=== PATIENT | male | born 2000 | race Caucasian/White ===

== ENCOUNTER 2019-11-04 19:13 | Emergency (ER) | payer BC, OTHER ==
[~2019-11-04] VITALS: Ht 177.8 cm; Wt 113.4 kg
== END 2019-11-04 20:37 | disposition home or self-care (01) ==
LOC: ED 19:13
DX: S61.011A Laceration without foreign body of right thumb without damage to nail, initial encounter (principal); W26.8XXA Contact with other sharp object(s), not elsewhere classified, initial encounter; Y93.89 Activity, other specified; Y92.89 Other specified places as the place of occurrence of the external cause; Y99.8 Other external cause status

== ENCOUNTER 2021-08-10 17:55 | Emergency (ER) | payer OTHER, BC ==
[~2021-08-10] VITALS: Ht 180.3 cm; Wt 122.5 kg
[2021-08-10] MEDS ORDERED: CYCLOBENZAPRINE10 MG PO (19:51)
[2021-08-10] MEDS ORDERED: Motrin,Rufen800 MG PO (19:51)
== END 2021-08-10 20:34 | disposition left against medical advice (07) ==
LOC: ED 17:55
DX: S16.1XXA Strain of muscle, fascia and tendon at neck level, initial encounter (principal); Z88.1 Allergy status to other antibiotic agents; V49.9XXA Car occupant (driver) (passenger) injured in unspecified traffic accident, initial encounter; Y93.89 Activity, other specified; Y92.89 Other specified places as the place of occurrence of the external cause; Y99.8 Other external cause status

== ENCOUNTER 2023-02-06 14:06 | Emergency (ER) | payer OTHER, BC ==
[~2023-02-06] VITALS: Ht 180.3 cm; Wt 122.5 kg
[~2023-02-06 14:06] MED LIST: CYCLOBENZAPRINE10 MG PO; Motrin,Rufen800 MG PO
[2023-02-06] MEDS ORDERED: BUSPAR15 MG PO (14:18)
[2023-02-06] MEDS ORDERED: 'CLONIDINE0.1 MG PO (14:18)
[2023-02-06 14:52] LABS: BASO % 0.6 % (0.0-1.0); LYMPH # 0.5 10*3/uL (1.3-4.4); LYMPH % 15.8 % (27.0-41.0); MEAN CELL VOLUME 89.6 fl (80.0-94.0); MEAN CORPUSCULAR HGB 30.1 pg (27.0-31.0); MEAN CORPUSCULAR HGB CONC 33.6 g/dl (33.0-37.0); MEAN PLATELET VOLUME 9.1 fl (9.6-12.3); MONO # 0.5 10*3/uL (0.1-1.0); MONO % 15.8 % (3.0-9.0); NEUT # 2.3 10*3/uL (2.3-7.9); NEUT % 67.5 % (47.0-73.0); PLATELET COUNT AUTOMATED 147 10*3/uL (130-400); RED BLOOD COUNT 5.02 10*6/uL (4.50-5.90); RED CELL DISTRI WIDTH 11.9 % (0-14.5); WHITE BLOOD COUNT 3.4 10*3/uL (4.8-10.8)
[2023-02-06 15:24] LABS: ALKALINE PHOSPHATASE 94 U/L (46-116); BUN 8 mg/dl (9-23); CHLORIDE 104 mmol/L (98-107); SGPT/ALT 39 U/L (10-49); TOTAL PROTEIN 7.4 gm/dL (6.0-8.0)
== END 2023-02-06 16:29 | disposition home or self-care (01) ==
LOC: ED 14:06
PROVIDERS: Nurse Practitioner Family
DX: B34.9 Viral infection, unspecified (principal); Z88.1 Allergy status to other antibiotic agents; Z20.822 Contact with and (suspected) exposure to COVID-19

== ENCOUNTER 2023-02-23 17:12 | Emergency (ER) | payer OTHER, BC ==
[~2023-02-23] VITALS: Wt 122.5 kg
[~2023-02-23 17:12] MED LIST changes: +'CLONIDINE0.1 MG PO; +BUSPAR15 MG PO
[2023-02-23] MEDS ORDERED: VIBRAMYCIN100 MG PO (18:50)
[2023-02-23] MEDS ORDERED: CEPHALEXIN500 M1 PO (18:50)
== END 2023-02-23 19:02 | disposition home or self-care (01) ==
LOC: ED 17:12
DX: L02.212 Cutaneous abscess of back [any part, except buttock and flank] (principal); Z88.1 Allergy status to other antibiotic agents

== ENCOUNTER 2023-04-16 08:08 | Emergency (ER) | payer OTHER, BC ==
[~2023-04-16] VITALS: Ht 180.3 cm; Wt 122.5 kg
[~2023-04-16 08:08] MED LIST changes: +CEPHALEXIN500 M1 PO; +VIBRAMYCIN100 MG PO
[2023-04-16 08:46] LABS: BASO % 0.4 % (0.0-1.0); EOS # 0.1 10*3/uL (0.0-0.4); EOS % 0.9 % (1.0-4.0); HEMATOCRIT 47.2 % (42.0-52.0); LYMPH # 1.3 10*3/uL (1.3-4.4); LYMPH % 16.3 % (27.0-41.0); MEAN CELL VOLUME 89.7 fl (80.0-94.0); MEAN CORPUSCULAR HGB 30.2 pg (27.0-31.0); MEAN CORPUSCULAR HGB CONC 33.7 g/dl (33.0-37.0); MEAN PLATELET VOLUME 8.8 fl (9.6-12.3); MONO # 0.4 10*3/uL (0.1-1.0); MONO % 4.7 % (3.0-9.0); NEUT # 6.4 10*3/uL (2.3-7.9); NEUT % 77.2 % (47.0-73.0); PLATELET COUNT AUTOMATED 254 10*3/uL (130-400); RED BLOOD COUNT 5.26 10*6/uL (4.50-5.90); WHITE BLOOD COUNT 8.2 10*3/uL (4.8-10.8)
[2023-04-16 09:11] LABS: BILIRUBIN Negative (Negative); BLOOD 2+ (Negative); CLARITY Clear (Clear); COLOR Yellow (Yellow); GLUCOSE Negative (Negative); KETONE Trace (Negative); LEUKO ESTERASE Negative (Negative); NITRITE Negative (Negative); SPECIFIC GRAVITY >= 1.030 (1.001-1.030)
[2023-04-16 09:20] LABS: ALKALINE PHOSPHATASE 92 U/L (46-116); BUN 12 mg/dl (9-23); CHLORIDE 108 mmol/L (98-107); POTASSIUM 4.7 mmol/L (3.4-5.1); SGPT/ALT 60 U/L (5-49); TOTAL PROTEIN 7.5 gm/dL (6.0-8.0)
[2023-04-16 09:20] LABS: BACTERIA 1+; MUCOUS 2+; RBC 21-30 rbc/hpf (0-2)
[2023-04-16] MEDS ORDERED: FLOMAX0.4 MG PO (10:06)
[2023-04-16] MEDS ORDERED: MELOXICAM15 MG PO (10:06)
== END 2023-04-16 10:17 | disposition home or self-care (01) ==
LOC: ED 08:08
PROVIDERS: Emergency Medicine
DX: N20.0 Calculus of kidney (principal); Z88.1 Allergy status to other antibiotic agents